=== PATIENT | female | born 1960 | race Caucasian/White ===

== ENCOUNTER 2016-11-12 17:37 | Inpatient (IN) | payer OTHER ==
[~2016-11-12] VITALS: Ht 160 cm; Wt 71.2 kg
--- NOTE | 2016-11-12 18:10 | NUR ---
Pt c/o headache since today am and chest pain x 4 months. 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 Per Dr. Pérez he spoke with Dr. Germán Elam and pt to be admitted to [facility].
[2016-11-12] MEDS ORDERED: METOPROLOL TARTRATE 5 MG/5 ML VIAL IVP ONE ×2 (18:15→18:29)
[2016-11-12 18:31] LABS: BASOPHILS % (AUTO) 0.3 % (0.0-2.0); EOSINOPHILS # (AUTO) 0.2 K/uL (0.0-0.7); EOSINOPHILS % (AUTO) 1.7 % (0.0-7.0); HEMATOCRIT 38.7 % (37-47); HEMOGLOBIN 12.9 G/DL (12.0-16.0); LYMPHOCYTES # (AUTO) 2.3 K/UL (0.8-4.8); LYMPHOCYTES % (AUTO) 24.5 % (20.5-51.5); MEAN CORPUSCULAR HEMOGLOBIN 29.8 UUG (27.0-31.0); MEAN CORPUSCULAR HGB CONC 33 g/dL (32.0-37.0); MEAN CORPUSCULAR VOLUME 89.4 FL (81.0-99.0); MONOCYTES # (AUTO) 0.8 K/UL (0.1-1.30); MONOCYTES % (AUTO) 8.8 % (0.0-11.0); NEUTROPHILS # (AUTO) 6.1 K/UL (1.8-8.9); NEUTROPHILS % (AUTO) 64.7 % (38.5-71.5); PLATELET COUNT (AUTO) 242 K/UL (150-450); RED BLOOD CELL COUNT(AUTO) 4.33 MIL/UL (4.2-5.4); WHITE BLOOD COUNT (AUTO) 9.4 K/UL (4.0-11.2)
[2016-11-12 18:34] LABS: CREATININE 1.1 mg/dL (0.6-1.3); POTASSIUM 3.8 mmol/L (3.5-5.1)
[2016-11-12 18:39] LABS: BILIRUBIN,TOTAL 0.4 mg/dL (0.2-1.0); TOTAL PROTEIN, SERUM 7.6 g/dL (6.4-8.2)
[2016-11-12] MEDS ORDERED: ONDANSETRON IV *ER 4 MG/2 ML VIAL IV ONE (18:45)
[2016-11-12] MEDS ORDERED: HYDROMORPHONE 1 MG/1 ML DISP.SYRIN IV ONE (18:45)
--- NOTE | 2016-11-12 18:50 | NUR ---
Pt to CT via [place] noted at this time.
[2016-11-12] MEDS ORDERED: HYDROMORPHONE 2 MG/1 ML DISP.SYRIN ONE (18:56)
[2016-11-12] MEDS ORDERED: ONDANSETRON 4 MG/2 ML VIAL ONE (18:56)
[2016-11-12 19:04] LABS: THYROID STIMULATING HORMONE 1.52 mIU/mL (0.358-3.740)
--- NOTE | 2016-11-12 19:05 | NUR ---
Pt back from CT, states her pain is improved ( 2/10 ). Report given to receptionist/telephone operator.
--- NOTE | 2016-11-12 19:14 | NUR ---
Recieved report from LUIS John. Assumed care of pt at this time. Pt resting in position of comfort for self. No complaints at this time. Admission pending.
[2016-11-12] MEDS ORDERED: NITROGLYCERIN OINT 1 GM PACKET TP ONE ×2 (19:30→19:46)
[2016-11-12] MEDS ORDERED: MORPHINE SULFATE 2 MG/1 ML DISP.SYRIN IV PRN (19:30)
[2016-11-12] MEDS ORDERED: ACETAMINOPHEN 325 MG TABLET PO PRN (19:30)
[2016-11-12] MEDS ORDERED: ASPIRIN 81 MG TAB.CHEW PO ONE (19:30)
[2016-11-12] MEDS ORDERED: NITROGLYCERIN 0.4 MG/TAB BOTTLE SL PRN (19:30)
[2016-11-12] MEDS ORDERED: CLONIDINE HCL 0.1 MG TABLET PO ONE (19:30)
[2016-11-12] MEDS ORDERED: HYDROCODONE/APAP 5-325MG TABLET PO PRN (19:30)
[2016-11-12] MEDS ORDERED: Z GUARD REMEDY PASTE 57 GM TUBE TOP PRN (19:30)
[2016-11-12] MEDS ORDERED: MAGNESIUM HYDROXIDE 30 ML LIQUID UDC PO PRN (19:30)
[2016-11-12] MEDS ORDERED: ONDANSETRON 4 MG/2 ML VIAL IV PRN (19:30)
[2016-11-12] MEDS ORDERED: CLONIDINE HCL 0.1 MG TABLET PO PRN (19:30)
--- NOTE | 2016-11-12 19:33 | NUR ---
Pt is hypertensive. Pt medicated for blood pressure, will monitor for effects of medication.
[2016-11-12] MEDS ORDERED: ASPIRIN 81 MG TAB.CHEW ONE (19:45)
--- NOTE | 2016-11-12 19:45 | NUR ---
Report called to LUIS John. Pt to be transfered to the floor once blood pressure shows improvement
[2016-11-12] MEDS ORDERED: CLONIDINE HCL 0.1 MG TABLET ONE (19:46)
--- NOTE | 2016-11-12 19:56 | NUR ---
Blood pressure improving. Receiving RN on floor updated.
--- NOTE | 2016-11-12 20:06 | NUR ---
RECEIVED PATIENT FROM ER VIA [employer]. USHERED PT SAFELY TO BED. SAFETY INITIATED. CALL LIGHT WITHIN REACH. ADMISSION PROTOCOL FOLLOWED. BELONGINGS LIST COMPLETED. NO SIGNS OF PAIN OR CHEST DISCOMFORT UPON ADMISSION. TELE LEADS APPLIED WITH SINUS RHYTHM. BODY ASSESSMENT DONE. SKIN INTACT. PT IS A/O BUT GROGGY. ABLE TO PROVIDE HISTORY. BP ELEVATED UPON ADMISSION. WILL REVIEW ORDERS & WILL GIVE MEDS ORDERED. WILL CONTINUE TO MONITOR.
[2016-11-12] MEDS ORDERED: SIMVASTATIN 10 MG TABLET PO SCH (21:00)
[2016-11-12] MEDS ORDERED: METOPROLOL TARTRATE 50 MG TABLET PO SCH (21:00)
[2016-11-12] MEDS: METOPROLOL TARTRATE 25 MG TABLET PO SCH (21:05)
[2016-11-13 00:10] VITALS: BP 157/88
[2016-11-13 00:20] VITALS: BP 136/84
[2016-11-13 04:00] VITALS: BP 158/90
[2016-11-13 06:17] VITALS: BP 137/87
--- NOTE | 2016-11-13 06:21 | NUR ---
NO CHANGES T/O SHIFT. NO ACUTE DISTRESS NOTED. SAFETY AND COMFORT MEASURES MAINTAINED T/O SHIFT. TELE SR SINUS ARIEL. NO C/O PAIN AT THIS TIME. WILL CONTINUE TO MONITOR.
[2016-11-13 06:40] LABS: BASOPHILS % (AUTO) 0.1 % (0.0-2.0); EOSINOPHILS # (AUTO) 0.2 K/uL (0.0-0.7); HEMATOCRIT 37.4 % (37-47); HEMOGLOBIN 12.6 G/DL (12.0-16.0); LYMPHOCYTES % (AUTO) 17.1 % (20.5-51.5); MEAN CORPUSCULAR HEMOGLOBIN 30.3 UUG (27.0-31.0); MEAN CORPUSCULAR HGB CONC 34 g/dL (32.0-37.0); MONOCYTES # (AUTO) 0.9 K/UL (0.1-1.30); NEUTROPHILS # (AUTO) 8.3 K/UL (1.8-8.9); NEUTROPHILS % (AUTO) 72.8 % (38.5-71.5); PLATELET COUNT (AUTO) 241 K/UL (150-450); RED BLOOD CELL COUNT(AUTO) 4.16 MIL/UL (4.2-5.4); WHITE BLOOD COUNT (AUTO) 11.4 K/UL (4.0-11.2)
[2016-11-13 06:48] LABS: CREATININE 0.8 mg/dL (0.6-1.3); MAGNESIUM 2.2 mg/dL (1.8-2.4); PHOSPHOROUS 3.4 mg/dL (2.5-4.9); POTASSIUM 4.4 mmol/L (3.5-5.1)
[2016-11-13 06:52] LABS: THYROID STIMULATING HORMONE 1.717 mIU/mL (0.358-3.740)
[2016-11-13] MEDS ORDERED: PANTOPRAZOLE SODIUM 40 MG TABLET.DR PO SCH (07:00)
[2016-11-13 07:57] LABS: BAND % (MANUAL) 4 % (0-10); EOSINOPHILS % (MANUAL) 2 % (0-8); LYMPHOCYTES % (MANUAL) 19 % (20-40); MONOCYTES % (MANUAL) 8 % (2-10); NEUTROPHILS % (MANUAL) 67 % (42-75)
[2016-11-13] MEDS: METOPROLOL TARTRATE 25 MG TABLET PO SCH (08:49)
[2016-11-13] MEDS ORDERED: ASPIRIN 81 MG TAB.CHEW PO SCH (09:00)
--- NOTE | 2016-11-13 09:58 | NUR ---
HEADACHE COMING BACK PAIN 05/22. TYLENOL GIVEN
[2016-11-13] MEDS ORDERED: METO25TA6 PO (10:50)
[2016-11-13] MEDS ORDERED: ASPI81TA31 PO (10:50)
[2016-11-13 11:24] VITALS: BP 130/77
[2016-11-13] MEDS ORDERED: AMLODIPINE 5 MG TABLET PO SCH (12:00)
[2016-11-13 12:16] VITALS: BP 125/79
[2016-11-13] MEDS ORDERED: KETOROLAC TROMETHAMINE 30 MG INJ IVP ONE (12:30)
[2016-11-13] MEDS ORDERED: NAPROXEN 500 MG TABLET PO PRN (12:30)
--- NOTE | 2016-11-13 14:00 | NUR ---
discharge protocol followed, BP WNL and pt denies headache. all belongings accounted for and sent with patient, iv removed with no redness or irritation noted. id band removed. pt left ambulatory in private car.
== END 2016-11-13 14:00 | disposition home or self-care (01) | DRG 54 ==
LOC: ER 17:37 → TELE 19:44
DX: G43.909 Migraine, unspecified, not intractable, without status migrainosus (principal); K75.9 Inflammatory liver disease, unspecified; I36.1 Nonrheumatic tricuspid (valve) insufficiency; I10 Essential (primary) hypertension; F32.9 Major depressive disorder, single episode, unspecified; F17.200 Nicotine dependence, unspecified, uncomplicated; R07.9 Chest pain, unspecified; F41.9 Anxiety disorder, unspecified; M19.90 Unspecified osteoarthritis, unspecified site
CPT/HCPCS: 36415; 70030-TC; 70450; 71010; 83735; 84100; 84443; 85025; 85610; 93005; 93307; A4663; J1170; J2405; J3490

== ENCOUNTER 2017-03-04 13:17 | Emergency (ER) | payer OTHER ==
[~2017-03-04] VITALS: Ht 160 cm; Wt 72.6 kg
[~2017-03-04 13:17] MED LIST: ASPI81TA31 PO; METO25TA6 PO
[2017-03-04] MEDS ORDERED: HYDROCODONE/APAP 5-325MG TABLET PO ONE (14:45)
[2017-03-04] MEDS ORDERED: ONDANSETRON ODT 4 MG TAB.RAPDIS SL ONE (14:45)
--- NOTE | 2017-03-04 14:49 | NUR ---
Patient discharged to home in stable conditon. Written and verbal after care instructions given. Patient verbalizes understanding of instructions.
[2017-03-04 14:50] VITALS: BP 150/80
[2017-03-04] MEDS ORDERED: HYDROCODONE/APAP 5-325MG TABLET ONE (14:59)
[2017-03-04] MEDS ORDERED: ONDANSETRON ODT 4 MG TAB.RAPDIS ONE (14:59)
== END 2017-03-04 14:51 | disposition home or self-care (01) ==
LOC: ER 13:17
DX: S52.611A Displaced fracture of right ulna styloid process, initial encounter for closed fracture (principal); S52.511A Displaced fracture of right radial styloid process, initial encounter for closed fracture; I10 Essential (primary) hypertension; F17.200 Nicotine dependence, unspecified, uncomplicated; Z79.82 Long term (current) use of aspirin; Z88.0 Allergy status to penicillin; W11.XXXA Fall on and from ladder, initial encounter; Y92.89 Other specified places as the place of occurrence of the external cause; Y93.89 Activity, other specified; Y99.8 Other external cause status
CPT/HCPCS: 73110; A4663; Q0162

== ENCOUNTER 2018-10-11 12:59 | Inpatient (IN) | payer OTHER ==
[~2018-10-11] VITALS: Ht 160 cm; Wt 72.6 kg
[~2018-10-11 12:59] MED LIST changes: -ASPI81TA31 PO; +LOSA100T31 PO; -METO25TA6 PO
[2018-10-11] MEDS ORDERED: NITROGLYCERIN 0.4 MG/TAB BOTTLE SL ONE ×2 (13:15→13:24)
[2018-10-11 13:26] LABS: BASOPHILS # (AUTO) 0.1 K/uL (0.0-8.0); BASOPHILS % (AUTO) 0.7 % (0.0-2.0); EOSINOPHILS # (AUTO) 0.3 K/uL (0.0-0.7); EOSINOPHILS % (AUTO) 2.5 % (0.0-7.0); HEMATOCRIT 36.8 % (31.2-41.9); HEMOGLOBIN 12.5 g/dL (10.9-14.3); LYMPHOCYTES # (AUTO) 2.6 K/uL (20.0-40.0); LYMPHOCYTES % (AUTO) 22.1 % (20.5-51.5); MEAN CORPUSCULAR HEMOGLOBIN 29.9 uug (24.7-32.8); MEAN CORPUSCULAR HGB CONC 34 g/dL (32.3-35.6); MONOCYTES # (AUTO) 0.9 K/uL (2.0-10.0); MONOCYTES % (AUTO) 7.8 % (0.0-11.0); NEUTROPHILS # (AUTO) 7.8 K/uL (1.8-8.9); NEUTROPHILS % (AUTO) 66.9 % (38.5-71.5); PLATELET COUNT (AUTO) 258 K/uL (179-408); RED BLOOD CELL COUNT(AUTO) 4.18 MIL/uL (3.63-4.92); WHITE BLOOD COUNT (AUTO) 11.7 K/uL (3.8-11.8)
[2018-10-11] MEDS ORDERED: ATROPINE SULFATE 1 MG/10 ML DISP.SYRIN ONE (13:28)
[2018-10-11] MEDS ORDERED: MORPHINE SULFATE 2 MG/1 ML DISP.SYRIN IV ONE (13:30)
[2018-10-11] MEDS ORDERED: ATROPINE SULFATE 1 MG/10 ML DISP.SYRIN IV ONE (13:30)
[2018-10-11 13:36] LABS: POTASSIUM 3.8 mmol/L (3.5-5.1)
[2018-10-11] MEDS ORDERED: MORPHINE SULFATE 4 MG/1 ML DISP.SYRIN ONE (13:39)
[2018-10-11] MEDS ORDERED: ONDANSETRON 4 MG/2 ML VIAL ONE (13:39)
[2018-10-11 13:42] LABS: ETHANOL < 3 MG/DL (0-0)
[2018-10-11] MEDS ORDERED: MORPHINE SULFATE 4 MG/1 ML DISP.SYRIN IV ONE (13:45)
[2018-10-11] MEDS ORDERED: ONDANSETRON IV *ER 4 MG/2 ML VIAL IV ONE (13:45)
[2018-10-11 13:48] LABS: BILIRUBIN,DIRECT 0.4 mg/dL (0.0-0.2); BILIRUBIN,TOTAL 0.9 mg/dL (0.2-1.0); TOTAL PROTEIN, SERUM 7.3 g/dL (6.4-8.2)
[2018-10-11] MEDS ORDERED: IV NORMAL SALINE 250 ML IV ONE (13:54)
[2018-10-11] MEDS ORDERED: SWABABLE VALVE TRANSFER SET EA MC ONE (13:54)
[2018-10-11] MEDS ORDERED: IOHEXOL 350 100 ML INFUS..BTL ONE (13:54)
[2018-10-11] MEDS ORDERED: ASPIRIN 81 MG TAB.CHEW PO ONE (15:45)
[2018-10-11] MEDS ORDERED: MORPHINE SULFATE 2 MG/1 ML DISP.SYRIN IV PRN (16:00)
[2018-10-11] MEDS ORDERED: HYDROCODONE/APAP 5-325MG TABLET PO PRN (16:00)
[2018-10-11] MEDS ORDERED: MAGNESIUM HYDROXIDE 30 ML LIQUID UDC PO PRN (16:00)
[2018-10-11] MEDS ORDERED: ACETAMINOPHEN 325 MG TABLET PO PRN (16:00)
[2018-10-11] MEDS ORDERED: ONDANSETRON 4 MG/2 ML VIAL IV PRN (16:00)
[2018-10-11] MEDS ORDERED: NITROGLYCERIN 0.4 MG/TAB BOTTLE SL PRN (16:00)
[2018-10-11] MEDS ORDERED: ASPIRIN 81 MG TAB.CHEW ONE (16:27)
[2018-10-11 16:50] VITALS: BP 145/86
[2018-10-11 20:09] VITALS: BP_SYST 152; BP_SYST 172; BP_DIAS 75; BP_DIAS 83
[2018-10-12 00:36] VITALS: BP 152/75
[2018-10-12 04:00] VITALS: BP 144/62
[2018-10-12 06:42] LABS: BASOPHILS % (AUTO) 0.9 % (0.0-2.0); EOSINOPHILS # (AUTO) 0.2 K/uL (0.0-0.7); EOSINOPHILS % (AUTO) 3.7 % (0.0-7.0); HEMATOCRIT 32.6 % (31.2-41.9); HEMOGLOBIN 11.4 g/dL (10.9-14.3); LYMPHOCYTES # (AUTO) 1.6 K/uL (20.0-40.0); LYMPHOCYTES % (AUTO) 31.2 % (20.5-51.5); MEAN CORPUSCULAR HGB CONC 35 g/dL (32.3-35.6); MEAN CORPUSCULAR VOLUME 89.1 fL (75.5-95.3); MONOCYTES # (AUTO) 0.5 K/uL (2.0-10.0); MONOCYTES % (AUTO) 9.6 % (0.0-11.0); NEUTROPHILS # (AUTO) 2.9 K/uL (1.8-8.9); NEUTROPHILS % (AUTO) 54.6 % (38.5-71.5); PLATELET COUNT (AUTO) 214 K/uL (179-408); RED BLOOD CELL COUNT(AUTO) 3.66 MIL/uL (3.63-4.92); WHITE BLOOD COUNT (AUTO) 5.2 K/uL (3.8-11.8)
[2018-10-12 06:55] LABS: CREATININE 0.9 mg/dL (0.6-1.3); MAGNESIUM 1.9 mg/dL (1.8-2.4); PHOSPHOROUS 3.6 mg/dL (2.5-4.9); POTASSIUM 4.1 mmol/L (3.5-5.1)
[2018-10-12] MEDS ORDERED: PANTOPRAZOLE SODIUM 40 MG TABLET.DR PO SCH (07:00)
[2018-10-12 07:57] LABS: *AMPHETAMINE, URINE POSITIVE (NEGATIVE); *BARBITURATE, URINE NEGATIVE (NEGATIVE); *CANNABINOID, URINE NEGATIVE (NEGATIVE); *COCCAINE, URINE NEGATIVE (NEGATIVE); *OPIATE, URINE POSITIVE (NEGATIVE); *PHENCYCLIDINE SCREEN,URINE NEGATIVE (NEGATIVE)
[2018-10-12 08:06] LABS: THYROID STIMULATING HORMONE 1.572 mIU/mL (0.358-3.740)
[2018-10-12] MEDS ORDERED: ASPIRIN EC 81 MG TABLET.DR PO SCH (09:00)
[2018-10-12 11:21] VITALS: BP 138/75
== END 2018-10-12 13:40 | disposition home or self-care (01) | DRG 776 ==
LOC: ER 12:59 → TELE3 16:36 → MEDSURG3 10-12 13:36
DX: F15.988 Other stimulant use, unspecified with other stimulant-induced disorder (principal); R45.851 Suicidal ideations; I45.81 Long QT syndrome; R07.9 Chest pain, unspecified; D35.02 Benign neoplasm of left adrenal gland; F17.210 Nicotine dependence, cigarettes, uncomplicated; I10 Essential (primary) hypertension; R00.1 Bradycardia, unspecified; Z86.19 Personal history of other infectious and parasitic diseases; G43.909 Migraine, unspecified, not intractable, without status migrainosus; M54.40 Lumbago with sciatica, unspecified side; M47.9 Spondylosis, unspecified
CPT/HCPCS: 36415; 70030-TC; 71045; 80307; 83735; 84100; 84443; 85025; 85730; 93005; 93307; 97116; 97530; A4663; G0378; G0480; J0461; J2270; J2405; J7030; J7050; Q9967

== ENCOUNTER 2019-12-03 12:38 | Emergency (ER) | payer OTHER ==
[~2019-12-03] VITALS: Ht 160 cm; Wt 72.6 kg
--- NOTE | 2019-12-03 12:40 | NUR ---
Dr. Buckley at bedside for MSE
[2019-12-03] MEDS ORDERED: HYDROMORPHONE 1 MG/1 ML DISP.SYRIN IV ONE (13:00)
[2019-12-03] MEDS ORDERED: IV NORMAL SALINE 1000 ML BAG IV ONE (13:00)
[2019-12-03] MEDS ORDERED: ONDANSETRON 4 MG/2 ML VIAL IV ONE (13:00)
[2019-12-03 13:01] LABS: *BILIRUBIN,URIN NEGATIVE (NEGATIVE); *BLOOD, URINE NEGATIVE (NEGATIVE); *CLARITY,URINE CLEAR (CLEAR); *COLOR,URINE YELLOW (YELLOW); *KETONES,URINE NEGATIVE (NEGATIVE); *UROBILINOGEN,URINE 0.2 E.U./dl (NORMAL); LEUKOCYTE ESTERASE ,URINE TRACE (NEGATIVE); NITRITE, URINE NEGATIVE (NEGATIVE); PH,URINE 5.5 (5.0-8.0); UGLUCOSE NEGATIVE (NEGATIVE)
[2019-12-03] MEDS ORDERED: HYDROMORPHONE 2 MG/1 ML DISP.SYRIN ONE (13:07)
[2019-12-03] MEDS ORDERED: ONDANSETRON 4 MG/2 ML VIAL ONE (13:07)
[2019-12-03 13:24] LABS: BASOPHILS # (AUTO) 0.1 K/uL (0.0-8.0); BASOPHILS % (AUTO) 0.5 % (0.0-2.0); EOSINOPHILS # (AUTO) 0.3 K/uL (0.0-0.7); EOSINOPHILS % (AUTO) 2.5 % (0.0-7.0); HEMATOCRIT 38.9 % (31.2-41.9); HEMOGLOBIN 12.9 g/dL (10.9-14.3); LYMPHOCYTES # (AUTO) 2.2 K/uL (20.0-40.0); LYMPHOCYTES % (AUTO) 17.7 % (20.5-51.5); MEAN CORPUSCULAR HEMOGLOBIN 30.1 uug (24.7-32.8); MEAN CORPUSCULAR HGB CONC 33 g/dL (32.3-35.6); MEAN CORPUSCULAR VOLUME 90.5 fL (75.5-95.3); MONOCYTES # (AUTO) 1.2 K/uL (2.0-10.0); MONOCYTES % (AUTO) 9.7 % (0.0-11.0); NEUTROPHILS # (AUTO) 8.6 K/uL (1.8-8.9); NEUTROPHILS % (AUTO) 69.6 % (38.5-71.5); PLATELET COUNT (AUTO) 228 K/uL (179-408); WHITE BLOOD COUNT (AUTO) 12.3 K/uL (3.8-11.8)
[2019-12-03 13:30] LABS: CREATININE 1.1 mg/dL (0.6-1.3); POTASSIUM 4.4 mmol/L (3.5-5.1)
[2019-12-03 13:36] LABS: BILIRUBIN,DIRECT 0.5 mg/dL (0.0-0.2); BILIRUBIN,TOTAL 0.8 mg/dL (0.2-1.0); TOTAL PROTEIN, SERUM 7.1 g/dL (6.4-8.2)
[2019-12-03] MEDS ORDERED: CEFTRIAXONE 2 G in IV DEXTROSE 5% 100 ML IV ONE (14:15)
[2019-12-03] MEDS ORDERED: CEFTRIAXONE /D5W 50ML IVPB **ER PYXIS IV ONE (14:21)
[2019-12-03 15:24] LABS: RBC,URINE 0-3 /HPF (0-3)
--- NOTE | 2019-12-03 15:24 | NUR ---
Rocephin 2g IV done infusing at 1524. No ASE noted
[2019-12-03 15:25] LABS: BACTERIA,URINE RARE /HPF (NONE SEEN); SQUAMOUS EPITHELIAL CELL,UR FEW /HPF (NONE SEEN)
--- NOTE | 2019-12-03 15:30 | NUR ---
IV removed. Catheter intact and site benign. Pressure and 4x4 gauze applied to site. No bleeding noted. Patient discharged to home in stable condition. Written and verbal after care instructions given. Patient verbalizes understanding of instructions. Stressed follow up or return to ER for worsening s/s. Patient ambulated with steady gait. Patient's partner outside of ED to take patient home. NAD noted
[2019-12-03 15:37] VITALS: BP 112/67
== END 2019-12-03 15:30 | disposition home or self-care (01) ==
LOC: ER 12:40
DX: N39.0 Urinary tract infection, site not specified (principal); B18.2 Chronic viral hepatitis C; F17.200 Nicotine dependence, unspecified, uncomplicated; Z86.69 Personal history of other diseases of the nervous system and sense organs; Z88.1 Allergy status to other antibiotic agents; Z88.0 Allergy status to penicillin
CPT/HCPCS: 36415; 71045; 74176; 80048; 80076; 81001; 83690; 84484; 85025; 85730; 93005; 96361; 96365; 96375; 99285; J0696; J1170; J2405; 70030-TC; A4663; J7030